=== PATIENT | male | born 1965 | race Caucasian/White ===

== ENCOUNTER 2024-12-16 17:05 | Emergency (ER) | payer BC, OTHER ==
[2024-12-16 17:11] VITALS: BP 158/101; PULSE 66; RESP 18; TEMP 98.7; BMI 20.3
[2024-12-16] MEDS ORDERED: ACETAMINOPHEN INJECTION 100 ML ONE (17:59)
[2024-12-16] MEDS: SODIUM CHLORIDE 1,000 ML IV STA (18:20)
[2024-12-16] MEDS: ACETAMINOPHEN 1000 MG/100 ML BAG IVPB ONE (18:20)
[2024-12-16 18:40] LABS: ABSOLUTE IMMATURE GRANULOCYTES 0.03 x10^3/uL (0.0-0.031); BASOPHILS # 0.03 x10^3/uL (0.01-0.08); EOSINOPHIL % 0.4 % (0.8-7.0); EOSINOPHILS # 0.04 x10^3/uL (0.04-0.54); HEMATOCRIT 33.2 % (40.1-51.0); HEMOGLOBIN 11.2 g/dL (13.7-17.5); MCHC 33.7 g/dl (32.3-36.5); MEAN CELL VOLUME 88.3 fl (79.0-92.2); MONOCYTE # 0.89 x10^3/uL (0.30-0.82); PLATELET COUNT 242 x10^3/uL (163-337); RDW 12.4 % (12.2-16.4)
[2024-12-16 18:52] LABS: INR 1.14 (0.83-1.09); PROTHROMBIN TIME (PATIENT) 12.5 SEC (9.7-13.0)
[2024-12-16 18:54] LABS: ACTIVATED PTT 32.4 SECONDS (25.2-36.5)
[2024-12-16 18:58] LABS: POTASSIUM 4.1 mmol/L (3.5-5.1)
[2024-12-16 19:01] LABS: EPI CELLS 1 /uL (0-25.1); HYALINE CASTS 0 /uL (0-3.1); PH,URINE 5.5 (5.0-8.0); URINE APPEARANCE CLEAR; URINE BACTERIA 1 /uL (0-1359); URINE BILIRUBIN NEGATIVE (NEGATIVE); URINE COLOR YELLOW; URINE GLUCOSE (UA) 1+ (NEGATIVE); URINE KETONE TRACE (NEGATIVE); URINE LEUK ESTERASE NEGATIVE (NEGATIVE); URINE NITRITE NEGATIVE (NEGATIVE); URINE PROTEIN 2+ (NEGATIVE); URINE RBC 142 /uL (0-23.9); URINE UROBILINOGEN 0.2 mg/dL (0.2-1.0); URINE WBC 4 /uL (0-25.8)
[2024-12-16 19:01] LABS: ALBUMIN 3.8 g/dl (3.4-5.0); BLOOD UREA NITROGEN 30.4 mg/dL (7-18); MAGNESIUM 1.5 mg/dL (1.8-2.4)
[2024-12-16 19:04] LABS: CREATININE 3.6 mg/dL (0.55-1.3)
[2024-12-16 19:06] LABS: BILIRUBIN,TOTAL 0.6 mg/dL (0.2-1); TOT PROT 7.1 g/dl (6.4-8.2)
[2024-12-16 19:45] LABS: HIV INTERPRETATION NEGATIVE (NEGATIVE)
[2024-12-16 19:46] LABS: HCV DIAGNOSTIC IN-HOUSE W/RFLX NON-REACTIVE (NONREACTIVE)
[2024-12-16] MEDS ORDERED: MAGNESIUM SULFATE IN WATER 2 GM/50 ML IVPB IVPB ONE (19:56)
[2024-12-16] MEDS: MAGNESIUM SULFATE IN WATER 2 GM/50 ML IVPB IVPB ONE (20:04)
[2024-12-16] MEDS: SODIUM CHLORIDE 0.9% 500 ML INFUS.BAG IV ONE (20:11)
== END 2024-12-16 21:38 | disposition home or self-care (01) ==
LOC: JER 17:05
PROC: 3E033GC Introduction of Other Therapeutic Substance into Peripheral Vein, Percutaneous Approach (ICD-10-PCS; principal; 2024-12-16)
PROC: 3E033NZ Introduction of Analgesics, Hypnotics, Sedatives into Peripheral Vein, Percutaneous Approach (ICD-10-PCS; 2024-12-16)
PROC: 3E0337Z Introduction of Electrolytic and Water Balance Substance into Peripheral Vein, Percutaneous Approach (ICD-10-PCS; 2024-12-16)
DX: N13.2 Hydronephrosis with renal and ureteral calculous obstruction (principal); R10.32 Left lower quadrant pain; R94.31 Abnormal electrocardiogram [ECG] [EKG]; R15.2 Fecal urgency
CPT/HCPCS: 36415; 74176-TC; 80053; 81003; 82272; 83605; 83690; 83735; 85025; 85610; 85730; 86803; 86850; 86900; 86901; 87389; 93005; 93010; 99285-25; J0131